=== PATIENT | female | born 1985 | race Caucasian/White ===

== ENCOUNTER 2017-07-29 15:43 | Emergency (ER) ==
[2017-07-29 15:48] VITALS: BP 139/77; TEMP 98.4; BMI 42.7
--- NOTE | 2017-07-29 16:45 | ED.PDOC ---
General ED Provider: Dr. JAZMIN HAYES Chief Complaint: Wrist Pain/Injury Stated Complaint: Pain in Right Wrist. Nearly fell over a toy in her trailer and reached out to catch herself and sustatined injury to her lt wrist. Time Seen by Physician: 16:35 Mode of Arrival: Walk-In Information Source: Patient Exam Limitations: No limitations Nursing and Triage Documentation Reviewed and Agree: Yes Reviewed sepsis parameters & appropriate labs ordered?: Yes System Inflammatory Response Syndrome: Not Applicable Sepsis Protocol: For patient's 13 years and over: Temp is 96.8 and below OR 101 and greater Pulse >90 BPM Resp >20/minute Acutely Altered Mental Status Are patient's symptoms suggestive of a new infection, such as: -Pneumonia -Skin, Soft Tissue -Endocarditis -UTI -Bone, Joint Infection -Implantable Device -Acute Abdominal Infection -Wound Infection -Meningitis -Blood Stream Catheter Infection -Unknown System Inflammatory Response Syndrome: Not Applicable Trauma/Injury Complaint Exam - Trauma Complaint/Exam Location of Pain or Injury: Reports: RUE (Wrist) Mechanism of Injury: Reports: Fall Symptoms Are: Still present Timing of Treatment: Immediate Initial Severity: Severe Current Severity: Moderate Character: Reports: Aching, Sharp Aggravating: Reports: Movement Alleviating: Reports: Elevation, Ice Associated Signs and Symptoms: Reports: Swelling. Denies: LOC, Confusion, Memory loss, Lethargy, Vomiting, Bleeding, Bruising, Extremity disuse, Painful respiration, Hoarseness, Dysphagia, Hemoptysis, Significant blood loss : No Penetrating Injury Risk Factors: Reports: None Review of Systems - Review Of Systems Constitutional: Reports: No symptoms Eyes: Reports: No symptoms Ears, Nose, Mouth, Throat: Reports: No symptoms Respiratory: Reports: No symptoms Cardiac: Reports: No symptoms GI: Reports: No symptoms : Reports: No symptoms Musculoskeletal: Reports: No symptoms, Joint pain, Joint swelling Skin: Reports: No symptoms Neurological: Reports: No symptoms Endocrine: Reports: No symptoms Hematologic/Lymphatic: Reports: No symptoms All Other Systems: Reviewed and Negative Past Medical History - Past Medical History Previously Healthy: Yes Endocrine: Reports: None Cardiovascular: Reports: None Respiratory: Reports: None Hematological: Reports: None Gastrointestinal: Reports: None Genitourinary: Reports: None Neuro/Psych: Reports: None Musculoskeletal: Reports: None, Joint Pain (injury rt wrist) Cancer: Reports: None Last Menstrual Period: [address] checking thyroid. - Surgical History General Surgical History: Reports: None - Family History Family History: Reports: None - Social History Smoking Status: Current every day smoker Hx Substance Use: No Alcohol Screening: Occasionally Physical Exam - Physical Exam Appearance: Well-appearing, No pain distress, Well-nourished Ill-appearing: None Pain Distress: Mild Eyes: CARMEN, EOMI, Conjunctiva clear ENT: Ears normal, Nose normal, Oropharynx normal Respiratory: Airway patent, Breath sounds clear, Breath sounds equal, Respirations nonlabored Cardiovascular: RRR, Pulses normal, No rub, No murmur GI/: Soft, Nontender, No masses, Bowel sounds normal, No Organomegaly Musculoskeletal: Normal strength, No calf tenderness, Limited ROM, Edema ( Tenderness over volar aspect of wrist.discomfort withn pronation and suppination ) Skin: Warm, Dry, Normal color Neurological: Sensation intact, Motor intact, Reflexes intact, Cranial nerves intact, Alert, Oriented Psychiatric: Affect appropriate, Mood appropriate Interpretation - Radiology Interpretation Radiology Interpretation By: Radiologist Radiology Results: No acute changes Xray Comments: wrist Critical Care Note - Critical Care Note Total Time (mins): 0 Course - Course Orders, Labs, Meds: Orders Category Date Time Status Splint [ED SPLINT APPLICATION] .ONCE EMERGENCY 07/29/17 17:10 Active WRIST, RIGHT 3 VIEWS Stat RADS 07/29/17 16:42 Completed Vital Signs: Temp Pulse Resp BP Pulse Ox 07/29/17 15:44 98.4 F 72 20 139/77 97 Departure - Departure Time of Disposition: 17:15 Disposition: HOME SELF-CARE Discharge Problem: Strain of wrist, right Instructions: Wrist Injury (ED) Condition: Good Pt referred to PMD for follow-up: Yes IPMP verified?: No Additional Instructions: Wear splint for relief of discomfort Take NSAIDS for relief of pain ICE /ELEVATE and Avoid strenuous activity Allergies/Adverse Reactions: Allergies cefaclor [From Ceclor] Adverse Reaction (Verified 07/29/17 15:48) Sulfa (Sulfonamide Antibiotics) Adverse Reaction (Verified 07/29/17 15:48) Home Medications: Ambulatory Orders Naproxen 250 mg PO PRN PRN 07/29/17 Disposition Discussed With: Patient
--- NOTE | 2017-07-29 17:01 | DI ---
EXAM: Right wrist four views HISTORY: Injury, pain after fall. FINDINGS: Bone and joint structures appear normal. There is no displaced fracture or joint dislocat ion seen. General bone density and soft tissues are within normal limits. IMPRESSION: No fracture or dislocation identified.
== END 2017-07-29 17:28 | disposition home or self-care (01) ==
LOC: ED 15:43
DX: S66.911A Strain of unspecified muscle, fascia and tendon at wrist and hand level, right hand, initial encounter (principal); W19.XXXA Unspecified fall, initial encounter
CPT/HCPCS: 99283

== ENCOUNTER 2018-03-29 16:26 | Emergency (ER) ==
[2018-03-29 16:43] VITALS: BP 117/74; TEMP 97.2; BMI 39.7
[2018-03-29] MEDS ORDERED: SODIUM CHLORIDE 1,000 ML IV STA (16:54)
[2018-03-29] MEDS ORDERED: DEXTROSE 5%-NS IV SOLUTION 1,000 ML IV STA (16:56)
[2018-03-29] MEDS ORDERED: ZOFRAN 4 MG/2 ML IVP STA (16:57)
--- NOTE | 2018-03-29 17:06 | ED.PDOC ---
General ED Provider: Dr. JAZMIN HAYES Chief Complaint: Dizziness Stated Complaint: Was driving her car earlier and became dizzy. Blurring of vision. Then developed some lt hand numbness and paresthesia Lt Hand into Lt forearm to elbow.Currently in 3rd trimester of . States the longer she drove symptoms became worsened. Patient appears moderately anxious. Accucheck obtained -60 Time Seen by Physician: 16:40 Mode of Arrival: Walk-In Information Source: Patient Exam Limitations: Clinical condition Nursing and Triage Documentation Reviewed and Agree: Yes Does patient meet sepsis criteria?: No System Inflammatory Response Syndrome: Not Applicable Sepsis Protocol: For patient's 13 years and over: Temp is 96.8 and below OR 101 and greater Pulse >90 BPM Resp >20/minute Acutely Altered Mental Status Are patient's symptoms suggestive of a new infection, such as: -Pneumonia -Skin, Soft Tissue -Endocarditis -UTI -Bone, Joint Infection -Implantable Device -Acute Abdominal Infection -Wound Infection -Meningitis -Blood Stream Catheter Infection -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 Exam - Labor/Delivery Complaint/Exam Expected Date of Delivery: 07/22/18 Review of Systems - Review Of Systems Constitutional: Reports: No symptoms Eyes: Reports: No symptoms, Blurred vision Ears, Nose, Mouth, Throat: Reports: No symptoms Respiratory: Reports: No symptoms Cardiac: Reports: Lightheadedness GI: Reports: No symptoms : Reports: No symptoms Musculoskeletal: Reports: No symptoms Skin: Reports: No symptoms Neurological: Reports: No symptoms Endocrine: Reports: No symptoms Hematologic/Lymphatic: Reports: No symptoms All Other Systems: Reviewed and Negative Past Medical History - Past Medical History Previously Healthy: Yes Endocrine: Reports: None Cardiovascular: Reports: None Respiratory: Reports: None Hematological: Reports: None Gastrointestinal: Reports: None Genitourinary: Reports: None Neuro/Psych: Reports: None Musculoskeletal: Reports: None, Joint Pain (injury rt wrist) Cancer: Reports: None Last Menstrual Period: 09/21/2017 - Surgical History General Surgical History: Reports: None - Family History Family History: Reports: None - Social History Smoking Status: Current some day smoker Hx Substance Use: No Alcohol Screening: None - Immunizations Tetanus Shot up to Date: Yes Physical Exam - Physical Exam Appearance: Ill-appearing, Obese Ill-appearing: Mild Pain Distress: None Eyes: CARMEN, EOMI, Conjunctiva clear ENT: Ears normal, Nose normal, Oropharynx normal Respiratory: Airway patent, Breath sounds clear, Breath sounds equal, Respirations nonlabored Cardiovascular: RRR, Pulses normal, No rub, No murmur GI/: Soft, Nontender, No masses, Bowel sounds normal, No Organomegaly Musculoskeletal: Normal strength, ROM intact, No edema, No calf tenderness Skin: Warm, Dry, Normal color Neurological: Sensation intact, Motor intact, Reflexes intact, Cranial nerves intact, Alert, Oriented Psychiatric: Affect appropriate, Mood appropriate Critical Care Note - Critical Care Note Total Time (mins): 60 Course - Course Hematology/Chemistry: 03/29/18 17:00 03/29/18 17:00 Orders, Labs, Meds: Lab Review 03/29/18 03/29/18 03/29/18 17:00 17:00 17:00 WBC 9.19 RBC 4.41 Hgb 12.8 Hct 37.2 MCV 84.4 MCH 29.0 MCHC 34.4 RDW Coeff of Franny 15.4 H Plt Count 148 Immature Gran % (Auto) 0.3 Neut % (Auto) 70.9 Lymph % (Auto) 23.5 [place] % (Auto) 4.2 Eos % (Auto) 0.9 Baso % (Auto) 0.2 Immature Gran # (Auto) 0.0 Neut # (Auto) 6.5 Lymph # (Auto) 2.2 [place] # (Auto) 0.4 Eos # (Auto) 0.1 Baso # (Auto) 0.0 Sodium 133.4 L Potassium 3.66 Chloride 103.7 Carbon Dioxide 24.1 Anion Gap 9.26 BUN 4.5 L Creatinine 0.52 L Estimated GFR (MDRD) 138.00 BUN/Creatinine Ratio 8.65 Glucose 86.9 Calcium 8.87 Total Bilirubin 0.30 AST 19.7 ALT 12.4 Alkaline Phosphatase 61.7 Total Protein 6.57 Albumin 3.61 Globulin 2.96 Albumin/Globulin Ratio 1.21 Urine Color Urine Clarity Urine pH Ur Specific [place] Urine Protein Urine Glucose (UA) Urine Ketones Urine Blood Urine Nitrite Urine Bilirubin Urine Urobilinogen Ur Leukocyte Esterase Urine Microscopic WBC Ur Squamous Epith Cells Urine Bacteria Urine Opiates Screen Negative Ur Oxycodone Screen Negative Urine Methadone Screen Negative Ur Propoxyphene Screen Negative Ur Barbiturates Screen Positive U Tricyclic Antidepress Negative Ur Phencyclidine Scrn Negative Ur Amphetamine Screen Negative U Methamphetamines Scrn Negative U Benzodiazepines Scrn Negative Urine Cocaine Screen Negative U Cannabinoids Screen Negative 03/29/18 17:00 WBC RBC Hgb Hct MCV MCH MCHC RDW Coeff of Franny Plt Count Immature Gran % (Auto) Neut % (Auto) Lymph % (Auto) [place] % (Auto) Eos % (Auto) Baso % (Auto) Immature Gran # (Auto) Neut # (Auto) Lymph # (Auto) [place] # (Auto) Eos # (Auto) Baso # (Auto) Sodium Potassium Chloride Carbon Dioxide Anion Gap BUN Creatinine Estimated GFR (MDRD) BUN/Creatinine Ratio Glucose Calcium Total Bilirubin AST ALT Alkaline Phosphatase Total Protein Albumin Globulin Albumin/Globulin Ratio Urine Color Yellow Urine Clarity Slightly Urine pH 6.0 Ur Specific [place] >=1.030 Urine Protein Negative Urine Glucose (UA) Negative Urine Ketones 3+ Urine Blood Negative Urine Nitrite Negative Urine Bilirubin Negative Urine Urobilinogen 0.2 Ur Leukocyte Esterase Trace Urine Microscopic WBC 5-10 Ur Squamous Epith Cells 10-20 Urine Bacteria 2+ Urine Opiates Screen Ur Oxycodone Screen Urine Methadone Screen Ur Propoxyphene Screen Ur Barbiturates Screen U Tricyclic Antidepress Ur Phencyclidine Scrn Ur Amphetamine Screen U Methamphetamines Scrn U Benzodiazepines Scrn Urine Cocaine Screen U Cannabinoids Screen Orders Category Date Time Status EKG-(ED ONLY) Stat CARDIO 03/29/18 16:53 Completed IV [ED IV/MEDIPORT/POWERPORT] .ONCE EMERGENCY 03/29/18 16:53 Active CBC W/ AUTO DIFF Stat LAB 03/29/18 17:00 Completed CMP [COMPREHENSIVE METABOLIC PANEL] Stat LAB 03/29/18 17:00 Completed UA [URINALYSIS C & S IF INDICATED] Stat LAB 03/29/18 17:00 Completed URINE CULTURE Stat LAB 03/29/18 17:00 Completed URINE DRUG SCREEN (RAPID FOR ED) [DRUG SCREEN, URINE, LAB 03/29/18 17:00 Completed RAPID] Stat 0.9 % Sodium Chloride [Saline Flush] MEDS 03/29/18 16:53 Discontinued 1 syr IVF PRN PRN Dextrose 5 % and 0.9 % NaCl [Dextrose 5%-Ns IV Solution MEDS 03/29/18 16:56 Discontinued ] 1,000 ml IV 125 mls/hr Ondansetron HCl/Pf [Zofran 4 mg/2 ml] MEDS 03/29/18 16:57 Discontinued 4 mg IVP ONCE STA Medications Discontinued Medications Generic Name Dose Route Start Last Admin Trade Name Benq PRN Reason Stop Dose Admin Dextrose/Sodium Chloride 1,000 mls @ 125 mls/hr 03/29/18 16:56 03/29/18 17:06 Dextrose 5%-Ns Iv Solution IV 03/30/18 00:55 125 mls/hr .Q8H STA Administration Ondansetron HCl 4 mg 03/29/18 16:57 03/29/18 17:06 Zofran 4 Mg/2 Ml IVP 03/29/18 16:58 4 mg ONCE STA Administration Sodium Chloride 1 syr 03/29/18 16:53 Saline Flush IVF PRN PRN To flush IV Vital Signs: Temp Pulse Resp BP Pulse Ox 03/29/18 16:28 97.2 F L 94 H 16 117/74 99 Departure - Departure Time of Disposition: 18:35 Disposition: HOME SELF-CARE Discharge Problem: IUP (intrauterine ), incidental, Hypoglycemia, Dehydration during , Chronic headaches Instructions: Dehydration (ED), Non-diabetic Hypoglycemia (ED) Condition: Good Pt referred to PMD for follow-up: Yes IPMP verified?: No Additional Instructions: Remain well hydrated Consume adequate fluids daily Call OB physician for follow up tomorrow Allergies/Adverse Reactions: Allergies cefaclor [From Ceclor] Adverse Reaction (Verified 07/29/17 15:48) Sulfa (Sulfonamide Antibiotics) Adverse Reaction (Verified 07/29/17 15:48) Home Medications: Ambulatory Orders Vit Calc,Iron,Folic [ Vitamins] 1 tab PO DAILY 03/29/18 Disposition Discussed With: Patient, Family Neurological Complaint Exam - Dizziness Complaint/Exam Onset: Sudden Duration: 1 hr Symptoms Are: Still present Timing: Constant Episodes Lasting: Minutes Initial Severity: Moderate Current Severity: Moderate Character: Reports: Lightheaded Aggravating: Reports: Position change Alleviating: Reports: Closing eyes, Turning head Associated Signs and Symptoms: Reports: Nausea, Short of air, Visual changes Cardiac Risk Factors: Reports: None CVA Risk Factors: Reports: None Related Surgical History: Reports: None JVD Present: No Nystagmus Present: No Gag Reflex Present: Yes Meningeal Signs Positive: No Focal Weakness: Present: None Focal Sensory Loss: Present: None Gait: Unable [id number]: Normal Findings Differential Diagnoses: Hyperventilation, Hypovolemia, Other (/ hypoglycemis) Quality Indicator For Non-Traumatic Chest Pain/Syncope: EKG Performed
== END 2018-03-29 18:49 | disposition home or self-care (01) ==
LOC: ED 16:26
DX: E16.2 Hypoglycemia, unspecified (principal); E86.0 Dehydration; R51 Headache; G89.29 Other chronic pain; Z33.1 Pregnant state, incidental; F17.210 Nicotine dependence, cigarettes, uncomplicated
CPT/HCPCS: 36415; 80053; 80306; 81001; 82962; 85025; 87086; 93005; 93010; 96360; 96375; 99284

== ENCOUNTER 2018-07-30 15:42 | Emergency (ER) ==
[2018-07-30 15:47] VITALS: BP 141/89; TEMP 99.2; BMI 39.4
--- NOTE | 2018-07-30 16:08 | ED.PDOC ---
General ED Provider: Dr. ELVIN JOHNSON Chief Complaint: Non-specific Complaint Stated Complaint: post op wound check Time Seen by Physician: 15:45 (had a c section late june in the emergency for woound eval) Mode of Arrival: Walk-In Information Source: Patient Exam Limitations: No limitations Primary Care Provider: ASHISH MYERS Nursing and Triage Documentation Reviewed and Agree: Yes Does patient meet sepsis criteria?: No System Inflammatory Response Syndrome: Not Applicable Sepsis Protocol: For patient's 13 years and over: Temp is 96.8 and below OR 101 and greater Pulse >90 BPM Resp >20/minute Acutely Altered Mental Status Are patient's symptoms suggestive of a new infection, such as: -Pneumonia -Skin, Soft Tissue -Endocarditis -UTI -Bone, Joint Infection -Implantable Device -Acute Abdominal Infection -Wound Infection -Meningitis -Blood Stream Catheter Infection -Unknown Skin Complaint Exam - Skin/Soft Tissue Complaint/Exam Onset/Duration: 3 weeks ago was mrsa postive Symptoms Are: Resolved Initial Severity: Mild Current Severity: None Character: Reports: Redness Aggravating: Reports: None Alleviating: Reports: None Associated Signs and Symptoms: Denies: Fever, Chills, Itching, Drainage, Bruising, Tenderness, Red streaks, Joint swelling 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 Surgical History: Reports: None Recent Exposure to Others w/Similar Symptoms: No Differential Diagnoses: MRSA Review of Systems - Review Of Systems Constitutional: Reports: No symptoms Eyes: Reports: No symptoms Ears, Nose, Mouth, Throat: Reports: No symptoms Respiratory: Reports: No symptoms Cardiac: Reports: No symptoms GI: Reports: No symptoms : Reports: No symptoms Musculoskeletal: Reports: No symptoms Skin: Reports: No symptoms Neurological: Reports: No symptoms Endocrine: Reports: No symptoms Hematologic/Lymphatic: Reports: No symptoms All Other Systems: Reviewed and Negative Past Medical History - Past Medical History Previously Healthy: Yes Endocrine: Reports: None Cardiovascular: Reports: None Respiratory: Reports: None Hematological: Reports: None Gastrointestinal: Reports: None Genitourinary: Reports: None Neuro/Psych: Reports: None Musculoskeletal: Reports: None, Joint Pain (injury rt wrist) Cancer: Reports: None Last Menstrual Period: N/A - Surgical History General Surgical History: Reports: None - Family History Family History: Reports: None - Social History Smoking Status: Current every day smoker Hx Substance Use: No Alcohol Screening: Occasionally - Immunizations Tetanus Shot up to Date: No Physical Exam - Physical Exam Appearance: Well-appearing, No pain distress, Well-nourished Eyes: CARMEN, EOMI, Conjunctiva clear ENT: Ears normal, Nose normal, Oropharynx normal Respiratory: Airway patent, Breath sounds clear, Breath sounds equal, Respirations nonlabored Cardiovascular: RRR, Pulses normal, No rub, No murmur GI/: Soft, Nontender, No masses, Bowel sounds normal, No Organomegaly Musculoskeletal: Normal strength, ROM intact, No edema, No calf tenderness Skin: Warm, Dry (post op wound see photos in good repair ) Neurological: Sensation intact, Motor intact, Reflexes intact, Cranial nerves intact, Alert, Oriented Psychiatric: Affect appropriate, Mood appropriate Critical Care Note - Critical Care Note Total Time (mins): 0 Course - Course Vital Signs: Temp Pulse Resp BP Pulse Ox 07/30/18 15:43 99.2 F 63 18 141/89 H 97 Departure - Departure Time of Disposition: 16:08 Disposition: HOME SELF-CARE Discharge Problem: Visit for wound check Instructions: Acute Wound Care (ED) Condition: Good Pt referred to PMD for follow-up: Yes IPMP verified?: No Additional Instructions: Please call your Family Physician as soon as possible to schedule a follow-up appointment. Allergies/Adverse Reactions: Allergies cefaclor [From Ceclor] Adverse Reaction (Verified 07/30/18 15:47) Sulfa (Sulfonamide Antibiotics) Adverse Reaction (Verified 07/30/18 15:47) Home Medications: Ambulatory Orders Vit Calc,Iron,Folic [ Vitamins] 1 tab PO DAILY 03/29/18
== END 2018-07-30 16:19 | disposition home or self-care (01) ==
LOC: ED 15:42
DX: L53.9 Erythematous condition, unspecified (principal); Z98.890 Other specified postprocedural states; Z86.14 Personal history of Methicillin resistant Staphylococcus aureus infection; F17.210 Nicotine dependence, cigarettes, uncomplicated
CPT/HCPCS: 99282